=== PATIENT | female | born 2000 | race Caucasian/White ===

== ENCOUNTER 2025-01-20 11:16 | Emergency (ER) | payer BC, SELFPAY ==
[2025-01-20 11:25] VITALS: BP 152/94; PULSE 90; RESP 18; TEMP 36.5; O2SAT 100
--- NOTE | 2025-01-20 11:28 | ED_ITS ---
HPI - URI/Sore Throat General Chief Complaint: Dental/Oral Stated Complaint: LT Side face swelling Time Seen by Provider: 01/20/25 11:17 Source: patient Mode of arrival: ambulatory Limitations: no limitations History of Present Illness HPI Narrative: Patient is a 25-year-old female presents with sore throat started 3 days ago and left cheek swelling and pain started yesterday. She had tonsillitis and mono in 2018. Reports symptoms are similar but lacking fever and fatigue. Has an appointment with her PCP tomorrow and has plans to have her tonsils removed in February. Uncomfortable to chew to eat; drinking well and good urine output. Denies any recent antibiotic use. Reports warm compresses and ibuprofen use with minimal improvement. Denies any trauma, drainage, nasal congestion, ear pain, chest pain, shortness of breath, nausea, vomiting, diarrhea, fever, or chills. Related Data Allergies Allergy/AdvReac Type Severity Reaction Status Date / Time No Known Allergies Allergy Unverified 01/20/25 11:18 Review of Systems Review of Systems: All systems reviewed & are unremarkable except as noted in HPI and below Constitutional: Constitutional: Denies body ache(s), Denies fever(s), Denies headache(s), Denies malaise and Denies weakness Eyes: Eyes: Denies loss of vision ENT: Denies otalgia, Reports facial pain (jaw), Denies headache(s), Denies nasal discharge, Denies sinus pain and Reports sore throat Cardiovascular: Cardiovascular: Denies chest pain, Denies irregular heart rhythm and Denies dyspnea Respiratory: Respiratory: Denies dyspnea Gastrointestinal: Gastrointestinal: Denies abdominal pain, Denies melena, Denies hematochezia, Denies diarrhea, Denies nausea and Denies vomiting Musculoskeletal: Musculoskeletal: Denies back pain, Denies myalgias and Denies arthralgias Integumentary/Breasts: Skin/Breast: Denies pruritus and Denies rash Neurologic: Denies headache(s), Denies loss of vision and Denies weakness Psychiatric: Psychiatric: Reports no additional psychiatric complaints [facility] Social History Social History Smoking status: Never smoker Do You Feel Safe in your Home?: Yes Lack of Transportation: No Lack of Food: Never True Current Housing: I Have Housing Concerned About Future Housing: No Difficulty Paying Gas/Electric Bills: No Difficulty Paying for Meds: No Currently Unemployed: No Education: Bachelor's Degree Difficulty w/ Childcare or Family Care: No Comments At time of signature, agree with nursing past medical, surgical, social and family history. There is no relevant family history pertinent to the presenting complaint. Exam Const: General: cooperative, healthy appearing, no acute distress, uncomfortable and well nourished Nutritional Appearance: well nourished Orientation/consciousness: patient oriented x3 Limitations: no limitations HENMT: Head: normal to inspection, normocephalic and atraumatic Ears: hearing grossly normal bilaterally, external ears normal, TM's normal bilater ally and mastoids normal bilaterally Face/Nose/Sinus: Normal external nose present, normal facial exam, Facial tenderness on exam of face and sinuses (Left cheek tenderness) and Other nasal findings present (left cheek swelling and warmth) Face and sinus: normal facial exam Mouth: Yes Normal oral and palatal mucosa present, Yes lip normal, Yes tongue normal, Yes moist mucous membranes, No drooling, No mouth trauma, No muffled voice, Yes Abnormal salivary glands and ducts (left), No trismus and No restricted motion Teeth and gingiva: dentition normal and gingiva normal Throat: posterior oropharynx normal and abnormal tonsil bilateral erythema Eyes: General: appearance normal, both eyes and all related structures Alignment and Position: alignment normal and position normal Periorbital: periorbital findings normal Eyelids: eyelids normal Pupils: Equal, round and reactive pupils present EOM: EOMs intact bilaterally Neck: Neck: normal visual inspection, full ROM, no lymphadenopathy and supple Chest: Chest palpation & inspection: normal inspection of the chest Resp: Effort & Inspection: normal respiratory effort and able to speak in complete sentences Auscultation: clear to auscultation bilaterally Cardio: Rate: regular rate Rhythm: regular rhythm Heart sounds: S1 normal heart sound present and S2 normal heart sound present GI: Inspection: normal to inspection Skin: General skin exam: normal color and no rashes or lesions noted Neuro: General: patient oriented x3 and moves all extremities Cranial nerves: Yes Equal, round and reactive pupils present Speech: normal speech Gait exam (Neuro): Normal gait present Extrem: General: normal to inspection, full ROM and no edema Psych: Appearance: grossly normal and well kempt Mental Status: mental status grossly normal Speech and movement: Normal speech and movement present Affect: normal affect Attitude: cooperative Thought process: Normal thought process present Course Course Emergency Course: Patient is aware of diagnosis, understands and agrees to treatment plan. Anticipatory guidance given. Patient agrees to follow-up as directed and is aware of reasons to seek care at the emergency department. Portions of this record may have been created with voice recognition software Level of Care: Express Care Visit Vital Signs Vital signs: Vital Signs Temperature 36.5 C 01/20/25 11:25 Pulse Rate 90 01/20/25 11:25 Respiratory Rate 18 01/20/25 11:25 Blood Pressure 152/94 H 01/20/25 11:25 Pulse Oximetry 100 01/20/25 11:25 Oxygen Delivery Room Air 01/20/25 11:25 Temperature 36.5 C 01/20/25 11:25 Pulse Rate 90 01/20/25 11:25 Respiratory Rate 18 01/20/25 11:25 Blood Pressure 152/94 H 01/20/25 11:25 Pulse Oximetry 100 01/20/25 11:25 Oxygen Delivery Room Air 01/20/25 11:25 Reviewed MDM - URI/Sore Throat MDM Narrative Medical decision making narrative: There are no focal signs of space occupying lesions that are compromising to the airway; no dysphagia, odynophagia, dysphonia, or dyspnea. No uvular deviation or soft palate edema. Patient is non-toxic appearing. The floor of the mouth is soft with no signs of Darryl's Angina; no induration below mandible, no neck pain. Patient is without trismus or drooling and able to swallow secretions. Patient is felt appropriate for discharge home with antibiotics and steroids. Patient has follow-up with PCP scheduled Pt well hydrated appearing, in no respiratory distress, hemodynamically stable. Recommend supportive care. The patient is stable at time of discharge the clinical impression was discussed and the patient was given the opportunity to ask questions, which were addressed as completely as possible given the information available at present. Anticipatory guidance and return to care precautions were discussed and the importance of primary care follow-up was stressed and encouraged. The patient voiced understanding of the plan, indications to return, and the need for follow-up. Patient is appropriate for outpatient treatment and follow-up. Differential Diagnosis Differential diagnosis: Likely upper respiratory infection, otitis media, viral infection, pharyngitis and other (parotitis, dental abscess, less likely mastoiditis) Medical Records Attestation: I reviewed the patient's medical records. Lab Data Attestation: I reviewed the patient's lab results. Labs: Lab Results 01/20/25 Range/Units 11:30 POC Grp A Strep Screen Negative (Negative) Discharge Plan Discharge Clinical Impression: Acute parotitis Patient Disposition: Home Condition: Stable Instructions: Parotid Duct Obstruction (ED) Additional Instructions: Take antibiotic until it's gone. Take steroids in the morning with food You may massage face gently. Suck on hard lower candies or lemon drops. You may apply ice to the face to reduce pain/swelling. For pain, you may take: Tylenol 650-1000mg by mouth every 4-6 hours. Do not exceed 4000mg in 24 hours. If you have any worsening swelling, redness or difficulty swallowing go to the emergency department. Your blood pressure was elevated above 120/80 today at Urgent Care. This puts you above the threshold for follow up visit with a primary care provider. High blood pressure does not usually cause any symptoms, however it may lead to kidney failure, stroke, heart disease just to name a few if untreated . Many people are anxious when seeing a provider or nurse. As a result, you are not diagnosed with hypertension at this time unless your blood pressure is persistently high at two office visits at least one week apart. Some things that can help lower blood pressure are lifestyle modifications, such as light exercise, decreased salt in diet, and weight loss. It is important to follow up with a PCP about this within 1 week. Patient Language: Mongolian Prescriptions: New prednisone 20 mg tablet See Rx Instructions .ROUTE .COMPLEX Qty: 9 0RF Rx Instructions: 40 mg daily x3 days, 20 mg daily x3 days amoxicillin-pot clavulanate 875-125 mg tablet 1 tablet PO Q12H 10 Days Qty: 20 0RF Follow-up/Referrals: Malinda Bennett PA-C [Primary Care Provider] - 3 Days Time of Disposition: 12:21
[2025-01-20 11:38] LABS: EDSTREPNEGPOS1 Negative (Negative)
--- OUTSIDE RECORDS SUMMARY | 2025-01-20 12:54 | XMS_ITS | Referral Summary ---
Author Organization [facility] [[email or web address]] [address] [place] [address] Care Team Providers Care Mill Beam Fitter Name Role Phone Vandana Giron Primary Care Provider [phone] Allergies No known active allergies Medications No known medications Active Problems Problem Noted Date Diagnosed Date Chronic tonsillitis 06/11/2024 Assessment & Plan (06/11/2024 5:21 PM CDT): She has significant problems with tonsillitis and this includes recurring severe sore throats about every month or 2. She is very distressed by this. Nothing really seems to help. I think she would benefit from a tonsillectomy. I discussed the risks of tonsillectomy and adenoidectomy with the patient. There is risk of bleeding which can occur in approximately 2-3% of patients during the 1st 2 weeks of recovery. Some risk of permanent loss of taste sensation. Risk of anesthesia and airway complications also. She would like to go ahead and proceed with a tonsillectomy. She had no questions. Tinnitus of right ear 06/11/2024 Assessment & Plan (06/11/2024 5:22 PM CDT): I do not find anything abnormal. Unfortunately we do not have a hearing test today. We will see how things go with this. If symptoms continue may want to consider audiologic testing or further workup. She understands. 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 Gender Identity Not on file Sexual Orientation Not on file Last Filed Vital Signs Vital Sign Reading Time Taken Comments Blood Pressure - - Pulse - - Temperature - - Respiratory Rate 17 06/11/2024 4:12 PM CDT Oxygen Saturation - - Inhaled Oxygen Concentration - - Weight 74.8 kg (165 lb) 06/11/2024 4:12 PM CDT Height 180.3 cm (5' 11) 06/11/2024 4:12 PM CDT Body Mass Index 23.01 06/11/2024 4:12 PM CDT Plan of Treatment Upcoming Encounters Date Type Department Care Team (Latest Contact Info) Description 02/17/2025 8:40 AM CDT Hospital Encounter [facility] [place] [address] [place] [id number] Serg Cueto MD [address] [place] [address] 02/17/2025 8:40 AM CDT - 02/17/2025 9:45 AM CDT Surgery [facility] [place] [address] [place] [id number] Serg Cueto MD [address] [place] [address] BILATERAL TONSILLECTOMY Scheduled Procedures Name Priority Associated Diagnoses Date/Ti me TONSILLECTOMY AND ADENOIDECTOMY Chronic tonsillitis 02/17/2025 8:40 AM CDT Insurance [employer] OOS Care Teams Mill Beam Fitter Relationship Specialty Start Date End Date Vandana Giron PA [address] [place] [id number] PCP - General Family Practice 05/21/24
--- OUTSIDE RECORDS SUMMARY | 2025-01-20 12:54 | XMS_ITS | Clinical Summary ---
Author Organization [facility] [address] [employer] Address [address] [place] [address] Care Team Providers Care Sugarcane Planter Name Role Phone Vandana Giron Primary Care Provider [phone] Allergies No known active allergies Medications No [...] audiologic testing or further workup. She understands. Surgical History Surgery Date Site/Laterality Comments KNEE ARTHROSCOPY Medical History Medical History Date Comments Allergic rhinitis Anxiety Tonsillar enlargement Tinnitus Family History Medical History Relation Name Comments Cancer Maternal Grandfather Cancer Maternal Grandmother Relation Name Status Comments Maternal Grandfather Maternal Grandmother Social History Tobacco Use Types Packs/Day Years Used Date Smoking Tobacco: Former Cigarettes Smokeless Tobacco: Never Tobacco Cessation:Counseling Given: Not Answered Personal Safety Answer Date Recorded Getting School Help Needed Not on file 05/21 Comments Unknown Sex and Gender Information Value Date Recorded Sex Assigned at Not on file 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 Gender Identity Not on file Sexual Orientation Not on file Obstetrics History Last Filed Vital Signs Vital Sign Reading [...] Description 02/17/2025 8:40 AM CDT Hospital Encounter [facility] OR [address] [place] [id number] Serg Cueto MD [address] [place] [address] 02/17/2025 8:40 AM CDT - 02/17/2025 9:45 AM CDT Surgery [facility] OR [address] [place] [id number] Serg Cueto MD [address] [place] [address] BILATERAL TONSILLECTOMY Scheduled Procedures Name Priority Associated Diagnoses Date/Ti me TONSILLECTOMY AND ADENOIDECTOMY Chronic tonsillitis 02/17/2025 8:40 AM CDT Health Maintenance Due Date Last Done Comments Cervical Cancer Screening 2002 Depression Screening 2002 Hepatitis C Screening 2002 Varicella Vaccines (1 of 2 - 13+ 2-dose series) 2015 Meningococcal B Vaccine (1 of 2 - Standard) 2018 Hepatitis B Screening 01/19/2020 Regular Well Visit/Exam 18-64 01/19/2020 Covid-19 Vaccine ( season) 2024 08/18/2021, 12/12/2020, 11/14/2020 Influenza Vaccine (Season Ended) 2025 09/21/2022, 05/27/2019, 07/06/2018, Additional history exists DTaP/Tdap/Td Vaccine (3 - Td or Tdap) 09/21/2032 09/21/2022, 05/16/2013 HPV Vaccines Completed 09/25/2015, 05/14, 03/23/2015 Pneumococcal vaccine <65 Aged Out No longer eligible based on patient's age to complete this topic Insurance [employer] OOS Care Teams Sugarcane Planter Relationship Specialty Start Date End Date Vandana Giron PA [address] [place] [id number] PCP - General Family Practice 05/21/24
== END 2025-01-20 12:22 | disposition home or self-care (01) ==
PROVIDERS: Emergency Provider Nurse Practitioner Family; PCP Physician Assistant Medical
DX: K11.21 Acute sialoadenitis (principal)
CPT/HCPCS: 87081; 87880; 99213; G0463